=== PATIENT | female | born 1935 | race Caucasian/White ===

== ENCOUNTER 2017-06-05 22:51 | Inpatient (IN) | payer MEDICARE, OTHER ==
[2017-06-05 23:36] LABS: ADD MAN DIFF? NO
[2017-06-05] MEDS: FUROSEMIDE 40 MG INJ IV (23:36)
[2017-06-05] MEDS: morphine 4 MG/ML VIAL IV (23:36)
[2017-06-05] MEDS: NITROGLYCERIN 2% 1 GM OINT PKT TD (23:37)
[2017-06-05] MEDS: ONDANSETRON 4 MG INJ IV (23:37)
[2017-06-05 23:38] LABS: WHITE BLOOD COUNT 11.3 10^3/ul (4.8-10.8)
[2017-06-05 23:38] LABS: BASOPHIL # 0.1 10^3/ul (0.0-0.1); BASOPHILS % 0.4 % (0.0-2.0); EOSINOPHILS # 0.2 10^3/ul (0.0-0.5); EOSINOPHILS % 1.5 % (0.0-7.0); HEMATOCRIT 37.7 % (37.0-47.0); HEMOGLOBIN 12.5 g/dl (12.0-16.0); LYMPHOCYTES # 2.4 10^3/ul (0.8-2.9); MEAN CORPUSCULAR HEMOGLOBIN 29.6 pg (29.0-33.0); MEAN CORPUSCULAR HGB CONC 33.2 g/dl (32.0-37.0); MEAN CORPUSCULAR VOLUME 89.1 fl (82.0-101.0); MEAN PLATELET VOLUME 10.8 fl (7.4-10.4); MONOCYTE # 0.7 10^3/ul (0.3-0.9); MONOCYTES % 6.5 % (0.0-11.0); NEUTROPHIL # 7.9 10^3/ul (1.6-7.5); NEUTROPHILS % 70.2 % (39.0-77.0); PLATELET COUNT 250 10^3/UL (140-415); RED BLOOD COUNT 4.23 10^6/ul (4.20-5.40); RED CELL DISTRIBUTION WIDTH 11.9 % (11.5-14.5)
[2017-06-05 23:56] LABS: ALANINE AMINOTRANSFERASE 49 IU/L (13-69); ALBUMIN 4.5 g/dl (3.3-4.9); ALBUMIN/GLOBULIN RATIO 1.25; ALKALINE PHOSPHATASE 210 IU/L (42-121); ANION GAP 23 (8-16); ASPARTATE AMINO TRANSFERASE 61 IU/L (15-46); BILIRUBIN,INDIRECT 0.1 mg/dl (0-1.1); BILIRUBIN,TOTAL 0.1 mg/dl (0.2-1.3); BLOOD UREA NITROGEN 17 mg/dl (7-20); CALCIUM 9.5 mg/dl (8.4-10.2); CARBON DIOXIDE 20 mmol/L (21-31); CHLORIDE 93 mmol/L (97-110); CREATININE 0.81 mg/dl (0.44-1.00); SODIUM 131 mmol/L (135-144); TOTAL PROTEIN 8.1 g/dl (6.1-8.1)
[2017-06-06 00:04] LABS: B-TYPE NATRIURETIC PEPTIDE 1160 PG/ML (0-450)
[2017-06-06 00:09] LABS: TROPONIN-I 0.038 ng/ml (0.00-0.12)
[2017-06-06 00:15] LABS: GLUCOSE 703 mg/dl (70-220)
[2017-06-06] MEDS: INSULIN LISPRO 100 UNIT/ML VIAL SC (02:14)
[2017-06-06] MEDS: INSULIN GLARGINE [LANtus] 3 ML PEN SC ×2 (02:30→20:00)
[2017-06-06] MEDS ORDERED: GLUCOSE GEL 15 GRAM TUBE BUCCAL (02:30)
[2017-06-06] MEDS ORDERED: GLUCAGON 1 MG INJ IM (02:30)
[2017-06-06] MEDS ORDERED: morphine 2 MG INJ IV (02:30)
[2017-06-06] MEDS ORDERED: GLUCOSE GEL 15 GRAM TUBE PO ×2 (02:30)
[2017-06-06] MEDS ORDERED: ALBUTEROL/IPRATROPIUM (NEB) 3 ML AMP HHN (02:30)
[2017-06-06] MEDS ORDERED: ACETAMINOPHEN 325 MG TAB PO (02:30)
[2017-06-06] MEDS ORDERED: NITROGLYCERIN (SL) 0.4 MG TAB SL (02:30)
[2017-06-06] MEDS ORDERED: NACL 0.9% 3 ML SYG IV (02:30)
[2017-06-06] MEDS ORDERED: DEXTROSE 50% 50 ML SYRINGE IV ×2 (02:30)
[2017-06-06] MEDS ORDERED: ONDANSETRON 4 MG INJ IV (02:30)
[2017-06-06 06:22] LABS: ADD MAN DIFF? NO
[2017-06-06 06:34] LABS: WHITE BLOOD COUNT 8.7 10^3/ul (4.8-10.8)
[2017-06-06 06:34] LABS: BASOPHILS % 0.3 % (0.0-2.0); EOSINOPHILS # 0.1 10^3/ul (0.0-0.5); EOSINOPHILS % 1.5 % (0.0-7.0); HEMATOCRIT 32.1 % (37.0-47.0); HEMOGLOBIN 10.7 g/dl (12.0-16.0); LYMPHOCYTES # 1.5 10^3/ul (0.8-2.9); LYMPHOCYTES % 17.5 % (15.0-51.0); MEAN CORPUSCULAR HEMOGLOBIN 29.6 pg (29.0-33.0); MEAN CORPUSCULAR HGB CONC 33.3 g/dl (32.0-37.0); MEAN CORPUSCULAR VOLUME 88.9 fl (82.0-101.0); MEAN PLATELET VOLUME 10.1 fl (7.4-10.4); MONOCYTE # 0.6 10^3/ul (0.3-0.9); MONOCYTES % 6.8 % (0.0-11.0); NEUTROPHIL # 6.4 10^3/ul (1.6-7.5); NEUTROPHILS % 73.6 % (39.0-77.0); PLATELET COUNT 240 10^3/UL (140-415); RED BLOOD COUNT 3.61 10^6/ul (4.20-5.40); RED CELL DISTRIBUTION WIDTH 11.7 % (11.5-14.5)
[2017-06-06 06:56] LABS: ALANINE AMINOTRANSFERASE 46 IU/L (13-69); ALBUMIN 3.6 g/dl (3.3-4.9); ALBUMIN/GLOBULIN RATIO 1.38; ALKALINE PHOSPHATASE 117 IU/L (42-121); ANION GAP 17 (8-16); ASPARTATE AMINO TRANSFERASE 39 IU/L (15-46); BILIRUBIN,INDIRECT 0.2 mg/dl (0-1.1); BILIRUBIN,TOTAL 0.2 mg/dl (0.2-1.3); BLOOD UREA NITROGEN 19 mg/dl (7-20); CALCIUM 8.8 mg/dl (8.4-10.2); CARBON DIOXIDE 24 mmol/L (21-31); CHLORIDE 100 mmol/L (97-110); CHOL/HDL RATIO 4.4 RATIO; CHOLESTEROL 225 mg/dl (100-200); CREATININE 0.98 mg/dl (0.44-1.00); GLUCOSE 199 mg/dl (70-220); HDL CHOLESTEROL 51 mg/dl (33-92); LDL CHOLESTEROL,CALCULATED 118 mg/dl; MAGNESIUM 1.8 mg/dl (1.7-2.5); POTASSIUM 4.1 mmol/L (3.5-5.1); SODIUM 137 mmol/L (135-144); TOTAL PROTEIN 6.2 g/dl (6.1-8.1); TRIGLYCERIDES 281 mg/dl (0-149)
[2017-06-06 07:02] LABS: CREATINE KINASE 91 IU/L (23-200)
[2017-06-06 07:07] LABS: CK INDEX 1.6; CK-MB 1.47 ng/ml (0.0-2.4); TROPONIN-I 0.044 ng/ml (0.00-0.12)
[2017-06-06] MEDS: INSULIN ASPART [NOVOLOG] 3 ML PEN SC ×6 (08:00→21:00)
[2017-06-06] MEDS ORDERED: LORAZEPAM 2 MG INJ (08:10)
[2017-06-06] MEDS: LORAZEPAM 2 MG INJ IV ×3 (08:15→09:17)
[2017-06-06] MEDS ORDERED: FAMOTIDINE 20 MG TAB PO (09:00)
[2017-06-06] MEDS: FUROSEMIDE 20 MG TAB PO (09:00)
[2017-06-06] MEDS: APIXABAN 5 MG TABLET PO ×2 (09:00→21:00)
[2017-06-06] MEDS: SERTRALINE 50 MG TAB PO (09:00)
[2017-06-06] MEDS ORDERED: DONEPEZIL 5 MG TAB PO (09:00)
[2017-06-06] MEDS ORDERED: FERROUS SULFATE (EC) 325 MG TAB PO (09:00)
[2017-06-06] MEDS ORDERED: EZETIMIBE 10 MG TAB PO (09:00)
[2017-06-06] MEDS ORDERED: HEPARIN 5,000 UNIT/0.5 ML VIAL SC (09:00)
[2017-06-06] MEDS: HALOPERIDOL 5 MG INJ IM ×2 (10:39→13:37)
[2017-06-06 15:22] LABS: CREATINE KINASE 240 IU/L (23-200)
[2017-06-06 15:35] LABS: CK INDEX 0.9; CK-MB 2.18 ng/ml (0.0-2.4)
[2017-06-06] MEDS: MIRTAZAPINE 15 MG TAB PO (21:00)
[2017-06-06] MEDS: ATORVASTATIN 10 MG TAB PO (21:00)
[2017-06-07] MEDS: ACCU-CHEK XX (02:00)
[2017-06-07] MEDS: APIXABAN 5 MG TABLET PO ×2 (08:40→20:35)
[2017-06-07] MEDS: SERTRALINE 50 MG TAB PO (08:40)
[2017-06-07] MEDS: FUROSEMIDE 20 MG TAB PO (08:41)
[2017-06-07] MEDS: INSULIN ASPART [NOVOLOG] 3 ML PEN SC ×7 (08:42→20:43)
[2017-06-07 08:48] LABS: ADD MAN DIFF? NO
[2017-06-07 09:05] LABS: WHITE BLOOD COUNT 6.3 10^3/ul (4.8-10.8)
[2017-06-07 09:05] LABS: BASOPHILS % 0.5 % (0.0-2.0); EOSINOPHILS # 0.2 10^3/ul (0.0-0.5); EOSINOPHILS % 2.7 % (0.0-7.0); HEMATOCRIT 35.9 % (37.0-47.0); LYMPHOCYTES % 16.3 % (15.0-51.0); MEAN CORPUSCULAR HEMOGLOBIN 29.8 pg (29.0-33.0); MEAN CORPUSCULAR HGB CONC 33.4 g/dl (32.0-37.0); MEAN CORPUSCULAR VOLUME 89.1 fl (82.0-101.0); MEAN PLATELET VOLUME 10.3 fl (7.4-10.4); MONOCYTE # 0.5 10^3/ul (0.3-0.9); MONOCYTES % 8.3 % (0.0-11.0); NEUTROPHIL # 4.5 10^3/ul (1.6-7.5); NEUTROPHILS % 71.9 % (39.0-77.0); PLATELET COUNT 261 10^3/UL (140-415); RED BLOOD COUNT 4.03 10^6/ul (4.20-5.40); RED CELL DISTRIBUTION WIDTH 11.9 % (11.5-14.5)
[2017-06-07 09:33] LABS: ANION GAP 16 (8-16); BLOOD UREA NITROGEN 16 mg/dl (7-20); CALCIUM 8.7 mg/dl (8.4-10.2); CARBON DIOXIDE 26 mmol/L (21-31); CHLORIDE 99 mmol/L (97-110); CREATININE 0.86 mg/dl (0.44-1.00); GLUCOSE 342 mg/dl (70-220); MAGNESIUM 1.8 mg/dl (1.7-2.5); PHOSPHORUS 4.1 mg/dl (2.5-4.9); POTASSIUM 4.6 mmol/L (3.5-5.1); SODIUM 136 mmol/L (135-144)
[2017-06-07 09:40] LABS: ALANINE AMINOTRANSFERASE 39 IU/L (13-69); ALBUMIN 3.3 g/dl (3.3-4.9); ALBUMIN/GLOBULIN RATIO 1.13; ALKALINE PHOSPHATASE 117 IU/L (42-121); ANION GAP 11 (8-16); ASPARTATE AMINO TRANSFERASE 34 IU/L (15-46); BILIRUBIN,INDIRECT 0.3 mg/dl (0-1.1); BILIRUBIN,TOTAL 0.3 mg/dl (0.2-1.3); BLOOD UREA NITROGEN 16 mg/dl (7-20); CALCIUM 8.9 mg/dl (8.4-10.2); CARBON DIOXIDE 28 mmol/L (21-31); CHLORIDE 99 mmol/L (97-110); CREATININE 0.89 mg/dl (0.44-1.00); GLUCOSE 346 mg/dl (70-220); POTASSIUM 4.3 mmol/L (3.5-5.1); SODIUM 134 mmol/L (135-144); TOTAL PROTEIN 6.2 g/dl (6.1-8.1)
[2017-06-07] MEDS: ATORVASTATIN 10 MG TAB PO (20:35)
[2017-06-07] MEDS: MIRTAZAPINE 15 MG TAB PO (20:40)
[2017-06-07] MEDS: INSULIN GLARGINE [LANtus] 3 ML PEN SC (20:42)
[2017-06-08] MEDS: ACCU-CHEK XX (02:00)
[2017-06-08] MEDS: APIXABAN 5 MG TABLET PO ×2 (08:44→20:51)
[2017-06-08] MEDS: SERTRALINE 50 MG TAB PO (08:44)
[2017-06-08] MEDS: FUROSEMIDE 20 MG TAB PO (08:44)
[2017-06-08] MEDS: INSULIN ASPART [NOVOLOG] 3 ML PEN SC ×6 (08:45→20:55)
[2017-06-08 09:22] LABS: ALANINE AMINOTRANSFERASE 42 IU/L (13-69); ALBUMIN 3.2 g/dl (3.3-4.9); ALBUMIN/GLOBULIN RATIO 1.18; ALKALINE PHOSPHATASE 106 IU/L (42-121); ANION GAP 11 (8-16); ASPARTATE AMINO TRANSFERASE 26 IU/L (15-46); BILIRUBIN,INDIRECT 0.2 mg/dl (0-1.1); BILIRUBIN,TOTAL 0.2 mg/dl (0.2-1.3); BLOOD UREA NITROGEN 22 mg/dl (7-20); CALCIUM 8.8 mg/dl (8.4-10.2); CARBON DIOXIDE 28 mmol/L (21-31); CHLORIDE 101 mmol/L (97-110); GLUCOSE 236 mg/dl (70-220); POTASSIUM 4.1 mmol/L (3.5-5.1); SODIUM 136 mmol/L (135-144); TOTAL PROTEIN 5.9 g/dl (6.1-8.1)
[2017-06-08] MEDS ORDERED: LINAGLIPTIN 5 MG TABLET PO (17:00)
[2017-06-08] MEDS: metFORMIN 500 MG TAB PO (17:27)
[2017-06-08 17:37] LABS: HEPATITIS B SURFACE ANTIGEN NEGATIVE (NEGATIVE)
[2017-06-08 17:54] LABS: HEPATITIS C VIRAL ANTIBODY NEGATIVE (NEGATIVE)
[2017-06-08] MEDS: GLIMEPIRIDE 2 MG TAB PO (18:39)
[2017-06-08] MEDS: PIOGLITAZONE 30 MG TAB PO ×2 (18:39→19:12)
[2017-06-08] MEDS: MAGNESIUM SULFATE 2 GM/50 ML 50 ML IVPB (20:42)
[2017-06-08] MEDS: INSULIN GLARGINE [LANtus] 3 ML PEN SC (20:44)
[2017-06-08] MEDS: ATORVASTATIN 10 MG TAB PO (20:51)
[2017-06-08] MEDS: MIRTAZAPINE 15 MG TAB PO (20:51)
[2017-06-08] MEDS: traMADol 50 MG TAB PO (20:52)
[2017-06-09] MEDS: ACCU-CHEK XX (02:00)
[2017-06-09] MEDS: INSULIN ASPART [NOVOLOG] 3 ML PEN SC ×4 (08:00→20:42)
[2017-06-09] MEDS: GLIMEPIRIDE 2 MG TAB PO ×2 (08:20→16:45)
[2017-06-09] MEDS: FUROSEMIDE 20 MG TAB PO (08:20)
[2017-06-09] MEDS: APIXABAN 5 MG TABLET PO ×3 (08:21→21:00)
[2017-06-09] MEDS: SERTRALINE 50 MG TAB PO (08:21)
[2017-06-09] MEDS: metFORMIN 500 MG TAB PO ×2 (08:21→16:48)
[2017-06-09] MEDS: PIOGLITAZONE 30 MG TAB PO ×2 (09:00→16:38)
[2017-06-09 09:08] LABS: ADD MAN DIFF? NO
[2017-06-09 09:18] LABS: BASOPHILS % 0.6 % (0.0-2.0); EOSINOPHILS # 0.2 10^3/ul (0.0-0.5); EOSINOPHILS % 3.8 % (0.0-7.0); HEMATOCRIT 34.2 % (37.0-47.0); HEMOGLOBIN 11.3 g/dl (12.0-16.0); LYMPHOCYTES # 1.6 10^3/ul (0.8-2.9); LYMPHOCYTES % 31.7 % (15.0-51.0); MEAN CORPUSCULAR HEMOGLOBIN 30.1 pg (29.0-33.0); MEAN CORPUSCULAR VOLUME 91.2 fl (82.0-101.0); MEAN PLATELET VOLUME 10.1 fl (7.4-10.4); MONOCYTE # 0.5 10^3/ul (0.3-0.9); MONOCYTES % 10.2 % (0.0-11.0); NEUTROPHIL # 2.7 10^3/ul (1.6-7.5); NEUTROPHILS % 53.5 % (39.0-77.0); PLATELET COUNT 270 10^3/UL (140-415); RED BLOOD COUNT 3.75 10^6/ul (4.20-5.40); RED CELL DISTRIBUTION WIDTH 11.8 % (11.5-14.5)
[2017-06-09 09:36] LABS: ANION GAP 14 (8-16); BLOOD UREA NITROGEN 28 mg/dl (7-20); CALCIUM 8.6 mg/dl (8.4-10.2); CARBON DIOXIDE 28 mmol/L (21-31); CHLORIDE 100 mmol/L (97-110); CREATININE 1.02 mg/dl (0.44-1.00); GLUCOSE 104 mg/dl (70-220); POTASSIUM 4.3 mmol/L (3.5-5.1); SODIUM 138 mmol/L (135-144)
[2017-06-09 10:18] LABS: MAGNESIUM 2.3 mg/dl (1.7-2.5)
[2017-06-09] MEDS: DOXYCYCLINE 100 MG TAB PO ×2 (16:37→23:00)
[2017-06-09] MEDS: MUPIROCIN 2% 15 GM CR TOP ×2 (16:37→20:42)
[2017-06-09] MEDS: INSULIN GLARGINE [LANtus] 3 ML PEN SC (20:00)
[2017-06-09] MEDS: ATORVASTATIN 10 MG TAB PO ×2 (20:40→21:00)
[2017-06-09] MEDS: MIRTAZAPINE 15 MG TAB PO ×2 (20:41→21:00)
[2017-06-10] MEDS: ACCU-CHEK XX (02:00)
[2017-06-10] MEDS: metFORMIN 500 MG TAB PO (08:05)
[2017-06-10] MEDS: GLIMEPIRIDE 2 MG TAB PO (08:05)
[2017-06-10] MEDS: INSULIN ASPART [NOVOLOG] 3 ML PEN SC ×4 (08:12→20:09)
[2017-06-10] MEDS: MUPIROCIN 2% 15 GM CR TOP ×2 (09:00→20:10)
[2017-06-10] MEDS: APIXABAN 5 MG TABLET PO ×2 (09:04→20:03)
[2017-06-10] MEDS: PIOGLITAZONE 30 MG TAB PO (09:04)
[2017-06-10] MEDS: SERTRALINE 50 MG TAB PO (09:04)
[2017-06-10] MEDS: FUROSEMIDE 20 MG TAB PO (09:04)
[2017-06-10] MEDS: DOXYCYCLINE 100 MG TAB PO ×2 (09:04→20:03)
[2017-06-10 09:28] LABS: ALANINE AMINOTRANSFERASE 41 IU/L (13-69); ALBUMIN 3.1 g/dl (3.3-4.9); ALBUMIN/GLOBULIN RATIO 1.19; ALKALINE PHOSPHATASE 95 IU/L (42-121); ANION GAP 10 (8-16); ASPARTATE AMINO TRANSFERASE 27 IU/L (15-46); BLOOD UREA NITROGEN 23 mg/dl (7-20); CALCIUM 8.5 mg/dl (8.4-10.2); CARBON DIOXIDE 28 mmol/L (21-31); CHLORIDE 104 mmol/L (97-110); CREATININE 0.92 mg/dl (0.44-1.00); GLUCOSE 198 mg/dl (70-220); POTASSIUM 4.4 mmol/L (3.5-5.1); SODIUM 138 mmol/L (135-144); TOTAL PROTEIN 5.7 g/dl (6.1-8.1)
[2017-06-10] MEDS: metFORMIN 850 MG TAB PO (17:05)
[2017-06-10] MEDS: GLIMEPIRIDE 4 MG TAB PO (17:07)
[2017-06-10] MEDS: INSULIN GLARGINE [LANtus] 3 ML PEN SC (20:00)
[2017-06-10] MEDS: ATORVASTATIN 10 MG TAB PO (20:04)
[2017-06-10] MEDS: MIRTAZAPINE 15 MG TAB PO (20:04)
[2017-06-10] MEDS: LIDOCAINE 1%/EPI 30 ML INJ INJ (20:11)
[2017-06-11] MEDS: ACCU-CHEK XX (02:00)
[2017-06-11] MEDS: GLIMEPIRIDE 4 MG TAB PO ×3 (07:30→17:30)
[2017-06-11 07:55] LABS: ANION GAP 10 (8-16); BLOOD UREA NITROGEN 23 mg/dl (7-20); CALCIUM 9.1 mg/dl (8.4-10.2); CARBON DIOXIDE 29 mmol/L (21-31); CHLORIDE 104 mmol/L (97-110); CREATININE 0.95 mg/dl (0.44-1.00); GLUCOSE 220 mg/dl (70-220); POTASSIUM 4.6 mmol/L (3.5-5.1); SODIUM 138 mmol/L (135-144)
[2017-06-11] MEDS: INSULIN ASPART [NOVOLOG] 3 ML PEN SC ×5 (08:00→21:00)
[2017-06-11] MEDS: MUPIROCIN 2% 15 GM CR TOP ×2 (09:00→21:00)
[2017-06-11] MEDS: APIXABAN 5 MG TABLET PO ×3 (09:00→21:20)
[2017-06-11] MEDS: PIOGLITAZONE 30 MG TAB PO ×2 (09:00→14:37)
[2017-06-11] MEDS: FUROSEMIDE 20 MG TAB PO ×2 (09:00→14:38)
[2017-06-11] MEDS: DOXYCYCLINE 100 MG TAB PO ×3 (09:00→21:20)
[2017-06-11] MEDS: SERTRALINE 50 MG TAB PO ×2 (09:00→14:39)
[2017-06-11] MEDS: traMADol 50 MG TAB PO (09:49)
[2017-06-11] MEDS: metFORMIN 850 MG TAB PO ×2 (09:50→17:30)
[2017-06-11] MEDS: ZOLPIDEM 5 MG TAB PO (21:20)
[2017-06-11] MEDS: ATORVASTATIN 10 MG TAB PO (21:21)
[2017-06-11] MEDS: MIRTAZAPINE 15 MG TAB PO (21:21)
[2017-06-11] MEDS: INSULIN GLARGINE [LANtus] 3 ML PEN SC (21:25)
[2017-06-12] MEDS: ACCU-CHEK XX (02:00)
[2017-06-12] MEDS: MUPIROCIN 2% 15 GM CR TOP ×2 (09:00→21:06)
[2017-06-12] MEDS: SERTRALINE 50 MG TAB PO (09:18)
[2017-06-12] MEDS: GLIMEPIRIDE 4 MG TAB PO ×2 (09:18→17:25)
[2017-06-12] MEDS: DOXYCYCLINE 100 MG TAB PO ×2 (09:19→20:05)
[2017-06-12] MEDS: FUROSEMIDE 20 MG TAB PO (09:19)
[2017-06-12] MEDS: PIOGLITAZONE 30 MG TAB PO (09:19)
[2017-06-12] MEDS: metFORMIN 850 MG TAB PO ×2 (09:19→17:25)
[2017-06-12] MEDS: APIXABAN 5 MG TABLET PO ×2 (09:19→20:04)
[2017-06-12] MEDS: INSULIN ASPART [NOVOLOG] 3 ML PEN SC ×4 (09:33→21:00)
[2017-06-12] MEDS: ZOLPIDEM 5 MG TAB PO (20:04)
[2017-06-12] MEDS: ATORVASTATIN 10 MG TAB PO (20:04)
[2017-06-12] MEDS: MIRTAZAPINE 15 MG TAB PO (20:05)
[2017-06-12] MEDS: INSULIN GLARGINE [LANtus] 3 ML PEN SC (20:10)
[2017-06-13] MEDS: ACCU-CHEK XX (02:00)
[2017-06-13] MEDS: GLIMEPIRIDE 4 MG TAB PO ×2 (08:25→17:38)
[2017-06-13] MEDS: metFORMIN 850 MG TAB PO ×2 (08:26→17:39)
[2017-06-13] MEDS: PIOGLITAZONE 30 MG TAB PO (08:26)
[2017-06-13] MEDS: APIXABAN 5 MG TABLET PO (08:27)
[2017-06-13] MEDS: SERTRALINE 50 MG TAB PO (08:28)
[2017-06-13] MEDS: DOXYCYCLINE 100 MG TAB PO (08:28)
[2017-06-13] MEDS: FUROSEMIDE 20 MG TAB PO (08:28)
[2017-06-13] MEDS: INSULIN ASPART [NOVOLOG] 3 ML PEN SC ×3 (08:45→17:43)
[2017-06-13] MEDS: MUPIROCIN 2% 15 GM CR TOP (09:00)
== END 2017-06-13 19:56 | disposition home or self-care (01) | DRG 308 ==
LOC: MS4 06-06 14:58 → E/R 22:51 → MS4 06-06 01:20
DX: I48.91 Unspecified atrial fibrillation (principal); I50.33 Acute on chronic diastolic (congestive) heart failure; E11.42 Type 2 diabetes mellitus with diabetic polyneuropathy; R65.10 Systemic inflammatory response syndrome (SIRS) of non-infectious origin without acute organ dysfunction; E11.65 Type 2 diabetes mellitus with hyperglycemia; I11.0 Hypertensive heart disease with heart failure; E87.1 Hypo-osmolality and hyponatremia; L02.214 Cutaneous abscess of groin; R07.9 Chest pain, unspecified; D64.9 Anemia, unspecified; I35.0 Nonrheumatic aortic (valve) stenosis; E78.5 Hyperlipidemia, unspecified; Z91.14 Patient's other noncompliance with medication regimen; Z91.11 Patient's noncompliance with dietary regimen
CPT/HCPCS: 36415; 70450; 71045; 80048; 80053; 80061; 82550; 82553; 82962; 83036; 83735; 83880; 84100; 84443; 84484; 85025; 86803; 87340; 93005; 93306; 96372; 96374; 96375; 99291-25

== ENCOUNTER 2017-10-15 17:55 | Emergency (ER) | payer MEDICARE, OTHER ==
[2017-10-15 19:09] LABS: ADD MAN DIFF? NO
[2017-10-15 19:12] LABS: BASOPHILS % 0.6 % (0.0-2.0); EOSINOPHILS # 0.3 10^3/ul (0.0-0.5); EOSINOPHILS % 3.5 % (0.0-7.0); HEMATOCRIT 35.4 % (37.0-47.0); HEMOGLOBIN 11.6 g/dl (12.0-16.0); LYMPHOCYTES # 1.2 10^3/ul (0.8-2.9); LYMPHOCYTES % 17.3 % (15.0-51.0); MEAN CORPUSCULAR HGB CONC 32.8 g/dl (32.0-37.0); MEAN CORPUSCULAR VOLUME 88.5 fl (82.0-101.0); MEAN PLATELET VOLUME 10.4 fl (7.4-10.4); MONOCYTE # 0.6 10^3/ul (0.3-0.9); MONOCYTES % 8.4 % (0.0-11.0); NEUTROPHILS % 69.9 % (39.0-77.0); PLATELET COUNT 267 10^3/UL (140-415)
[2017-10-15 19:12] LABS: WHITE BLOOD COUNT 7.1 10^3/ul (4.8-10.8)
[2017-10-15] MEDS: ACETAMINOPHEN 500 MG TAB PO (19:16)
[2017-10-15] MEDS: DIPHTH/TET/ACEL PERTUSS (ADULT) 0.5 ML VIAL IM* (19:18)
[2017-10-15 19:32] LABS: ANION GAP 21 (8-16); BLOOD UREA NITROGEN 29 mg/dl (7-20); CALCIUM 8.8 mg/dl (8.4-10.2); CARBON DIOXIDE 24 mmol/L (21-31); CHLORIDE 90 mmol/L (97-110); CREATININE 1.18 mg/dl (0.44-1.00); POTASSIUM 5.8 mmol/L (3.5-5.1); SODIUM 129 mmol/L (135-144)
[2017-10-15 19:43] LABS: GLUCOSE 767 mg/dl (70-220); INR 0.95; PROTIME 12.8 Sec (11.9-14.9)
[2017-10-15] MEDS: SOD CHLORIDE 0.9% 1,000 ML IV (20:00)
[2017-10-15] MEDS: LACTATED RINGER'S 1,000 ML IV (20:01)
[2017-10-15 20:04] LABS: MODE ROOM AIR; MetHgb Venous 1.9 %; Sample Type Blood venous; Site VENOUS LINE; Venous COHb 0.3 %; Venous Fraction OxyHgb 24.6 %; Venous Oxygen Sat 25.2 mmHG (55.0-75.0); Venous Total Hemglobin 11.6 g/dl
[2017-10-15 20:16] LABS: TROPONIN-I < 0.012 ng/ml (0.000-0.120)
[2017-10-15 21:05] LABS: URINE BLOOD (Dip) POC Negative (NEGATIVE); URINE KETONES (Dip) POC Negative (NEGATIVE); URINE LEUKOCYTE EST (Dip) POC Negative (NEGATIVE); URINE NITRITE (Dip) POC Negative (NEGATIVE); URINE TOTAL PROTEIN POC Negative (NEGATIVE)
[2017-10-15 22:21] LABS: ADD UMIC NO; UR ASCORBIC ACID NEGATIVE (NEGATIVE); UR BILIRUBIN (Dip) NEGATIVE (NEGATIVE); UR BLOOD (Dip) NEGATIVE (NEGATIVE); UR CLARITY CLEAR (CLEAR); UR COLOR STRAW (YELLOW); UR GLUCOSE (Dip) 3+ mg/dL (NEGATIVE); UR KETONES (Dip) NEGATIVE (NEGATIVE); UR LEUKOCYTE ESTERASE (Dip) NEGATIVE Leu/ul (NEGATIVE); UR NITRITE (Dip) NEGATIVE (NEGATIVE); UR SPECIFIC GRAVITY (Dip) 1.025 (1.003-1.030); UR TOTAL PROTEIN (Dip) NEGATIVE (NEGATIVE); UR UROBILINOGEN (Dip) NEGATIVE (NEGATIVE)
[2017-10-15] MEDS: INSULIN GLARGINE [LANtus] 3 ML PEN SC (23:22)
== END 2017-10-15 23:30 | disposition home or self-care (01) ==
LOC: FTE 17:55 → E/R 23:30
DX: S05.11XA Contusion of eyeball and orbital tissues, right eye, initial encounter (principal); S09.90XA Unspecified injury of head, initial encounter; R73.9 Hyperglycemia, unspecified; I10 Essential (primary) hypertension; W01.198A Fall on same level from slipping, tripping and stumbling with subsequent striking against other object, initial encounter; Y92.512 Supermarket, store or market as the place of occurrence of the external cause; Z79.4 Long term (current) use of insulin; Z79.84 Long term (current) use of oral hypoglycemic drugs; Z79.01 Long term (current) use of anticoagulants
CPT/HCPCS: 36415; 70450; 70486; 73590; 80048; 81003; 82803; 82962; 84484; 85025; 85610; 85730; 90715; 93005; 96372; 99285-25